=== PATIENT | male | born 1990 | race Caucasian/White ===

== ENCOUNTER 2021-12-23 02:16 | Emergency (ER) | payer SELFPAY ==
[~2021-12-23] VITALS: Ht 182.9 cm; Wt 105.0 kg
[2021-12-23 02:28] VITALS: BP 122/80
[2021-12-23] MEDS ORDERED: SODIUM CHLORIDE 0.9% 1,000 ML IV ONE (03:00)
[2021-12-23] MEDS ORDERED: NALO4SPR BOTHNSTRLS (04:18)
== END 2021-12-23 04:38 | disposition home or self-care (01) ==
LOC: ER 02:16
DX: F14.10 Cocaine abuse, uncomplicated (principal); F12.10 Cannabis abuse, uncomplicated; F41.9 Anxiety disorder, unspecified
CPT/HCPCS: 99283

== ENCOUNTER 2021-12-23 07:06 | Emergency (ER) | payer MEDICAID ==
[~2021-12-23] VITALS: Ht 177.8 cm; Wt 82.0 kg
[~2021-12-23 07:06] MED LIST: NALO4SPR BOTHNSTRLS
[2021-12-23] MEDS ORDERED: LORAZEPAM 2MG/ML CPJ IM STA (07:50)
[2021-12-23] MEDS ORDERED: OLANZAPINE 10 MG/VIAL IM ONE (08:00)
[2021-12-23 08:58] LABS: BASOPHILS % 0.5 % (0.0-2.0); EOSINOPHILS % 0.5 % (0.0-5.0); HEMATOCRIT. 42.5 % (42.0-52.0); HEMOGLOBIN. 14.8 g/dL (14.0-18.0); MEAN CORPUSCULAR HEMOGLOBIN 33.9 pg (28.0-32.0); MEAN CORPUSCULAR VOLUME 97.4 fL (80.0-94.0); MEAN PLATELET VOLUME 9.6 fl (7.4-10.4); MONOCYTES % 11.7 % (2.0-8.0); NEUTROPHILS % 68.3 % (40.0-76.0); PLATELET 166 x1000/uL (130-400); RED BLOOD CELL COUNT 4.36 mill/uL (4.7-6.1)
[2021-12-23 09:06] LABS: CHLORIDE 104 mEq/L (98-107)
[2021-12-23 09:16] LABS: CLARITY URINE CLEAR (CLEAR); COLOR URINE DARK YELLOW (YELLOW); KETONES URINE 2+ (NEGATIVE); LEUKOCYTE ESTERASE URINE NEGATIVE (NEGATIVE); NITRITE URINE NEGATIVE (NEGATIVE); OCCULT BLOOD URINE NEGATIVE (NEGATIVE); PH URINE 5.5 (4.5-8.0); PROTEIN URINE 1+ (NEGATIVE); SPECIFIC GRAVITY URINE 1.034 (1.005-1.030)
[2021-12-23 09:20] LABS: ETHANOL BLOOD < 10 mg/dL
[2021-12-23 10:41] LABS: *AMPHETAMINES SCREEN URINE NEGATIVE (NEGATIVE); *BARBITURATES SCREEN URINE NEGATIVE (NEGATIVE); *BENZODIAZEPINES SCREEN URINE NEGATIVE (NEGATIVE); *COCAINE SCREEN URINE NEGATIVE (NEGATIVE); CANNABINOID URINE SCREEN PRESUMTIVE POSITIVE (NEGATIVE); METHADONE URINE SCREEN NEGATIVE (NEGATIVE); OPIATES URINE SCREEN NEGATIVE (NEGATIVE); PHENCYCLIDINE URINE SCREEN NEGATIVE (NEGATIVE)
[2021-12-24] MEDS ORDERED: LORAZEPAM 2MG/ML CPJ IV ONE (01:15)
[2021-12-24] MEDS ORDERED: DIPHENHYDRAMINE 50MG/ML VIAL IV ONE (01:15)
[2021-12-24] MEDS ORDERED: LORAZEPAM 2MG/ML CPJ IM STA ×2 (05:52→06:59)
[2021-12-24] MEDS ORDERED: OLANZAPINE 10 MG/VIAL IM ONE ×2 (06:00→22:15)
[2021-12-24] MEDS ORDERED: LORAZEPAM 2MG/ML CPJ IM ONE ×2 (16:30→20:30)
[2021-12-24] MEDS ORDERED: OLANZAPINE 5MG TABLET ODT PO SCH (21:00)
[2021-12-24] MEDS ORDERED: DIPHENHYDRAMINE 50MG/ML VIAL IM ONE (22:15)
[2021-12-25] MEDS ORDERED: OLANZAPINE 10 MG/VIAL IM NR (04:15)
[2021-12-25] MEDS ORDERED: OLANZAPINE 5MG TABLET ODT PO SCH (09:00)
[2021-12-25 13:25] VITALS: BP 128/91
== END 2021-12-25 14:43 ==
LOC: ER 07:06
DX: F23 Brief psychotic disorder (principal); R45.1 Restlessness and agitation; F12.10 Cannabis abuse, uncomplicated; F41.9 Anxiety disorder, unspecified; Z75.1 Person awaiting admission to adequate facility elsewhere; Z20.822 Contact with and (suspected) exposure to COVID-19
CPT/HCPCS: 36415; 70450; 80053; 80305; 80320; 81003; 85025; 96372; 96374; 96375; 99285; J2060; J3490; G0480

== ENCOUNTER 2022-02-04 10:12 | Emergency (ER) | payer MEDICAID ==
[~2022-02-04] VITALS: Ht 182.9 cm; Wt 118.0 kg
[2022-02-04 10:54] VITALS: BP 160/86
[2022-02-04] MEDS ORDERED: SERTRALINE HCL 50MG TABLET PO STA (11:04)
[2022-02-04] MEDS ORDERED: RISPERIDONE 1MG TABLET PO STA (11:04)
[2022-02-04] MEDS ORDERED: IBUPROFEN 600MG TABLET PO ONE (11:15)
[2022-02-04] MEDS ORDERED: BO1 TP (12:02)
[2022-02-04] MEDS ORDERED: IBUP-2029 MT (12:02)
== END 2022-02-04 13:09 | disposition home or self-care (01) ==
LOC: ER 10:12
DX: S90.822A Blister (nonthermal), left foot, initial encounter (principal); F41.9 Anxiety disorder, unspecified; M79.672 Pain in left foot; F20.9 Schizophrenia, unspecified; F31.9 Bipolar disorder, unspecified; X58.XXXA Exposure to other specified factors, initial encounter; Y93.89 Activity, other specified; Y92.018 Other place in single-family (private) house as the place of occurrence of the external cause
CPT/HCPCS: 73630; 93971; 99284

== ENCOUNTER 2022-02-08 00:43 | Emergency (ER) | payer MEDICAID, OTHER ==
[~2022-02-08] VITALS: Ht 182.9 cm; Wt 127.7 kg
[~2022-02-08 00:43] MED LIST changes: +BO1 TP; +IBUP-2029 MT
[2022-02-08 00:50] VITALS: BP 176/83
[2022-02-08] MEDS ORDERED: OLANZAPINE 10MG TABLET PO NR (02:00)
[2022-02-08 02:36] LABS: BASOPHILS % 0.9 % (0.0-2.0); EOSINOPHILS % 2.8 % (0.0-5.0); HEMATOCRIT. 44.3 % (42.0-52.0); MEAN CORPUSCULAR HEMOGLOBIN 33.6 pg (28.0-32.0); MEAN CORPUSCULAR VOLUME 99.4 fL (80.0-94.0); MEAN PLATELET VOLUME 9.1 fl (7.4-10.4); NEUTROPHILS % 64.3 % (40.0-76.0); PLATELET 189 x1000/uL (130-400); RED BLOOD CELL COUNT 4.45 mill/uL (4.7-6.1); RED CELL DISTRIBUTION WIDTH 13.3 % (11.6-14.6)
[2022-02-08 02:42] LABS: CHLORIDE 106 mEq/L (98-107)
[2022-02-08 02:48] LABS: ETHANOL BLOOD < 10 mg/dL
== END 2022-02-08 03:45 | disposition home or self-care (01) ==
LOC: ER 00:43
DX: F41.8 Other specified anxiety disorders (principal); F31.9 Bipolar disorder, unspecified; F20.9 Schizophrenia, unspecified; R03.0 Elevated blood-pressure reading, without diagnosis of hypertension
CPT/HCPCS: 36415; 80048; 80307; 80320; 80329; 85025; 99283; G0480

== ENCOUNTER 2022-02-09 01:25 | Emergency (ER) | payer OTHER | END 2022-02-09 04:32 | disposition left against medical advice (07) | LOC: ER 01:38 | DX: Z53.21 Procedure and treatment not carried out due to patient leaving prior to being seen by health care provider (principal) ==

== ENCOUNTER 2022-11-05 00:51 | Emergency (ER) | payer MEDICAID, OTHER ==
[~2022-11-05] VITALS: Ht 182.9 cm; Wt 140.0 kg
[2022-11-05 01:00] VITALS: TEMP 98.8; O2SAT 97
[2022-11-05 01:34] LABS: BASOPHILS % 0.3 % (0.0-2.0); EOSINOPHILS % 0.1 % (0.0-5.0); HEMATOCRIT. 45.4 % (42.0-52.0); HEMOGLOBIN. 15.6 g/dL (14.0-18.0); LYMPHOCYTES % 10.6 % (20.0-50.0); MEAN CORPUSCULAR HEMOGLOBIN 33.5 pg (28.0-32.0); MEAN CORPUSCULAR HGB CONC 34.2 g/dL (31.0-37.0); MEAN PLATELET VOLUME 9.7 fl (7.4-10.4); MONOCYTES % 7.1 % (2.0-8.0); NEUTROPHILS % 81.9 % (40.0-76.0); PLATELET 158 x1000/uL (130-400); RED BLOOD CELL COUNT 4.64 mill/uL (4.7-6.1); RED CELL DISTRIBUTION WIDTH 13.4 % (11.6-14.6); WHITE BLOOD COUNT 17.5 x1000/uL (4.5-11.0)
[2022-11-05 01:41] LABS: CHLORIDE 104 mEq/L (98-107); INDEX HEMOLYSI 1 (1-3); INDEX ICTERIC 1 (1-4); INDEX LIPEMIC 1 (1-3); POTASSIUM 4.2 mEq/L (3.5-5.1); SODIUM 134 mEq/L (136-145)
[2022-11-05 01:50] LABS: ALANINE AMINOTRANSFERASE 53 IU/L (13-61); ALBUMIN 3.8 g/dL (3.4-5.0); ASPARTATE AMINOTRANSFERASE 47 IU/L (15-37); BILIRUBIN TOTAL 0.9 mg/dL (0.1-1.0); CALCIUM 9.2 mg/dL (8.5-10.1); CARBON DIOXIDE 24 mEq/L (21-32); CREATININE 1.2 mg/dL (0.6-1.3); GLUCOSE 153 mg/dL (70-105); PROTEIN TOTAL 8.3 g/dL (6.0-8.3); UREA NITROGEN BLOOD 13 mg/dL (7-21)
[2022-11-05 02:18] LABS: CLARITY URINE CLEAR (CLEAR); COLOR URINE YELLOW (YELLOW); GLUCOSE URINE NEGATIVE (NEGATIVE); KETONES URINE TRACE (NEGATIVE); LEUKOCYTE ESTERASE URINE NEGATIVE (NEGATIVE); NITRITE URINE NEGATIVE (NEGATIVE); OCCULT BLOOD URINE 1+ (NEGATIVE); PH URINE 5.5 (4.5-8.0); PROTEIN URINE NEGATIVE (NEGATIVE); SPECIFIC GRAVITY URINE 1.023 (1.005-1.030); UROBILINOGEN URINE 0.2 E.U./dL (0.2-1.0)
[2022-11-05] MEDS ORDERED: SODIUM CHLORIDE 0.9% 1,000 ML IV NR (02:45)
[2022-11-05] MEDS ORDERED: ONDANSETRON HCL 4MG/2ML INJ IV NR (02:45)
[2022-11-05] MEDS ORDERED: KETOROLAC 30MG/ML VIAL IV NR (02:45)
[2022-11-05 02:48] LABS: INR 1.1; PROTHROMBIN TIME 11.6 sec (9.6-11.0)
[2022-11-05 03:16] LABS: RBC URINE 0-2 /hpf (0-2); SQUAMOUS EPITHELIAL CELL URINE FEW /lpf (RARE/1+); WBC URINE 0-2 /hpf (0-2)
[2022-11-05 03:17] LABS: BACTERIA URINE NONE SEEN
[2022-11-05 03:22] VITALS: BP 162/98; RESP 18
[2022-11-05] MEDS ORDERED: ONDA4TAB50 MT (05:23)
[2022-11-05] MEDS ORDERED: TAMS-11 MT (05:23)
[2022-11-05] MEDS ORDERED: CEPH500C2 MT (05:23)
[2022-11-05] MEDS ORDERED: HYDR-4001 MT (05:23)
[2022-11-05] MEDS ORDERED: IBUP-2029 MT (05:23)
[2022-11-05 05:30] VITALS: PULSE 93
[2022-11-05] MEDS ORDERED: CEPHALEXIN 250MG CAPSULE PO NR (05:30)
[2022-11-05] MEDS ORDERED: TAMSULOSIN HCL 0.4MG SR CAPSULE PO SCH (05:30)
== END 2022-11-05 06:27 | disposition home or self-care (01) ==
LOC: ER 00:51
DX: N20.1 Calculus of ureter (principal); R10.32 Left lower quadrant pain; R11.2 Nausea with vomiting, unspecified; Z20.822 Contact with and (suspected) exposure to COVID-19; Z00.00 Encounter for general adult medical examination without abnormal findings; Z86.59 Personal history of other mental and behavioral disorders
CPT/HCPCS: 80053; 81003; 83690; 85025; 85610; 36415; 74176; 96361; 96374; 96375; 99285; 87426; J1885; J2405; C9803; Z7610 ×3

== ENCOUNTER 2023-09-18 15:59 | Emergency (ER) | payer MEDICAID ==
[~2023-09-18] VITALS: Ht 180.3 cm; Wt 115.0 kg
[~2023-09-18 15:59] MED LIST changes: +CEPH500C2 MT; +HYDR-4001 MT; +ONDA4TAB50 MT; +TAMS-11 MT
[2023-09-18 16:14] VITALS: O2SAT 100
[2023-09-18] MEDS: KETOROLAC 30MG/ML VIAL IM STA (17:50)
[2023-09-18] MEDS: HYDROCODONE/ACETAMINOPHEN 5/325MG TABLET PO STA (17:50)
[2023-09-18] MEDS ORDERED: CYCL5TAB PO (18:18)
[2023-09-18] MEDS ORDERED: NAPR-681 PO (18:18)
[2023-09-18 18:46] VITALS: BP 123/78; PULSE 74; RESP 20; TEMP 98.7
== END 2023-09-18 18:00 | disposition home or self-care (01) ==
LOC: ER 15:59
DX: S39.012A Strain of muscle, fascia and tendon of lower back, initial encounter (principal); F41.9 Anxiety disorder, unspecified; F20.9 Schizophrenia, unspecified; Z79.899 Other long term (current) drug therapy; X58.XXXA Exposure to other specified factors, initial encounter; Y93.89 Activity, other specified; Y92.89 Other specified places as the place of occurrence of the external cause; Y99.8 Other external cause status
CPT/HCPCS: 99283; 72110; 96372; J1885